=== PATIENT | female | born 1975 | race Two or more races ===

== ENCOUNTER 2024-07-04 10:43 | Emergency (ER) | payer SELFPAY ==
--- NOTE | 2024-07-04 10:46 | EKG_ITS ---
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
[2024-07-04 10:50] VITALS: BP 143/82; PULSE 61; RESP 16; TEMP 36.7; O2SAT 99; BMI 30.3
--- NOTE | 2024-07-04 11:03 | XR_ITS ---
Examination: PA lateral chest 2 views TECHNIQUE: Upright PA lateral chest 2 views Exam date and time: July 04, 2024 1118 hours INDICATIONS: Chest pain beginning 3 days ago. FINDINGS: Normal heart size Lungs are clear. The osseous structures are intact IMPRESSION: No active disease
--- NOTE | 2024-07-04 11:03 | PD.EDRME ---
Rapid Medical Screening Exam RME Arrival date/time: 07/04/24 10:43 49-year-old female presents the emergency department complaints of chest pain ongoing x 3 days Chief Complaint: Chest Pain Vital signs: Vital Signs Temperature 98.0 F 07/04/24 10:50 Pulse Rate 61 07/04/24 10:50 Respiratory Rate 16 07/04/24 10:50 Blood Pressure 143/82 H 07/04/24 10:50 Pulse Oximetry (%) 99 07/04/24 10:50 Oxygen Delivery Method Room Air 07/04/24 10:50
[2024-07-04 11:51] LABS: Basophils # (Auto) 0.1 Thou/mm3 (0.0-0.2); Basophils % (Auto) 1 % (0-2.5); Eosinophils # (Auto) 0.1 Thou/mm3 (0.0-0.5); Eosinophils % (Auto) 2 % (0-10); Hematocrit 35.7 % (36.0-46.0); Hemoglobin 11.9 g/dL (12.0-16.0); Immature Granulocytes % (Auto) 0 % (0-0); Immature Granulocytes Auto 0.01 Thou/mm3 (0.00-0.00); Lymphocytes # (Auto) 2.1 Thou/mm3 (1.0-4.8); Lymphocytes % (Auto) 39 % (10-50); Mean Corpuscular HGB Conc 33.3 g/dl (31.0-37.0); Mean Corpuscular Hemoglobin 26.7 pg (25.0-35.0); Mean Corpuscular Volume 80 fL (80-100); Monocytes # (Auto) 0.5 Thou/mm3 (0.0-0.8); Monocytes % (Auto) 9 % (0-12); Neutrophils # (Auto) 2.6 Thou/mm3 (1.8-7.7); Neutrophils % (Auto) 49 % (37-80); Nucleated Red Blood Cell % 0 /100 WBC (0); Platelet Count 190 Thou/mm3 (140-440); RDW Standard Deviation 43.4 fL (36.4-46.3); Red Blood Count 4.45 Miln/mm3 (4.00-5.20); White Blood Count 5.3 Thou/mm3 (3.6-11.0)
[2024-07-04 12:14] LABS: Alanine Aminotransferase 12 U/L (10-49); Albumin, Serum 4.2 gm/dL (3.5-5.0); Albumin/Globulin Ratio 1.7 (1.2-2.2); Alkaline Phosphatase 62 U/L (46-116); Anion Gap 4 (7-16); Aspartate Amino Transferase 17 U/L (0-34); BUN/Creatinine Ratio 12 Ratio (12-20); Bilirubin,Total 0.6 mg/dL (0.3-1.2); Blood Urea Nitrogen 7 mg/dL (9-23); Calcium 9.6 mg/dL (8.3-10.6); Calcium (Corrected) 9.6 mg/dL (8.5-10.1); Carbon Dioxide 27.5 mMol/L (20.0-31.0); Chloride 105 mMol/L (98-107); Creatinine (Component) 0.6 mg/dL (0.6-1.3); Estimated Creatinine Clearance 120.4 mL/min (>60); Globulin 2.5 gm/dL (2.3-3.5); Glucose 90 mg/dL (74-106); Lipase 51 U/L (12-53); Osmolality,Calculated 269 (275-295); Potassium 3.8 mMol/L (3.4-5.1); Sodium 136 mMol/L (136-145); Total Protein 6.7 gm/dL (5.7-8.2); Troponin I < 0.002 ng/mL (0.0-0.045); eGFR > 60 See Note
[2024-07-04 13:28] LABS: HCG,Qualitative Serum Negative
--- NOTE | 2024-07-04 14:04 | EDNOTE_ITS ---
ED Chest Pain RME/HPI General Chief Complaint: Chest Pain Stated Complaint: CHEST PAIN X 3 DAYS Time Seen by Provider: 07/04/24 14:00 Arrival date/time: 07/04/24 10:43 49-year-old female with no significant medical problems presents the emergency department who complains of chest pain ongoing for the last 3 days patient does report she is under a lot of stress and she is going to a tomorrow. Limitations: no limitations RME / HPI RME / HPI narrative: 07/04/24 10:43 49-year-old female presents the emergency department complaints of chest pain ongoing x 3 days Related Data Allergies Allergy/AdvReac Type Severity Reaction Status Date / Time No Known Allergies Allergy Verified 07/04/24 10:43 Review of Systems Review of Systems Systems Reviewed: All systems reviewed, normal except as documented Constitutional Constitutional: Reports system reviewed and no additional complaints, except as documented, Denies fever(s) and Denies headache(s) Eyes Eyes: Reports system reviewed and no additional complaints, except as documented and Denies blurry vision ENT Ears, Nose, Mouth, and Throat: Reports system reviewed and no additional complaints, except as documented, Denies headache(s), Denies nasal congestion and Denies nasal discharge Cardiovascular Cardiovascular: Reports system reviewed and no additional complaints, except as documented, Reports chest pain and Denies dyspnea Respiratory Respiratory: Reports system reviewed and no additional complaints, except as documented, Denies chest congestion, Denies cough and Denies dyspnea Gastrointestinal Gastrointestinal: Reports system reviewed and no additional complaints, except as documented and Denies abdominal pain Integumentary/Breasts Skin/Breast: Reports system reviewed and no additional complaints, except as documented and Denies rash Neurologic Neurologic: Reports system reviewed and no additional complaints, except as documented, Reports as per HPI and Denies headache(s) Past Medical History Social History SMOKING STATUS: Never smoker SUBSTANCE USE: does not use ED Exam General Limitations: Present no limitations General appearance: Present alert and in no apparent distress Head Head exam: Present atraumatic Eye Eye exam: Present normal appearance, PERRL and EOMI; Absent conjunctival injection ENT ENT exam: Present normal exam, normal oropharynx and mucous membranes moist Neck Neck exam: Present normal inspection, full ROM and trachea midline Chest Chest inspection: Present normal inspection and symmetric chest wall rise Respiratory Respiratory exam: Present normal lung sounds bilaterally; Absent respiratory distress Cardiovascular Cardiovascular exam: Present regular rate, normal rhythm and normal heart sounds; Absent bradycardia, tachycardia, irregular rhythm, systolic murmur, diastolic murmur or JVD Abdominal Exam Abdominal exam: Present soft and normal bowel sounds; Absent distention, tenderness, guarding, rebound or rigidity Extremities Exam Extremities exam: Present normal inspection and full ROM Back Exam Back exam: Present normal inspection and full ROM Neurological Exam Neurological exam: Present alert, oriented X3 and CN II-XII intact Psychiatric Psychiatric exam: Present normal affect and normal mood Skin Skin exam: Present warm, dry, intact and normal color Course Quality Measures none Orders Category Date Time Status EKG (ED ONLY) *Do not use* NOW Care 07/04/24 10:46 Completed EKG (ED Only) Stat Exams 07/04/24 10:46 Draft XR chest 2V Stat Exams 07/04/24 11:03 Completed CBC Stat Lab 07/04/24 11:34 Completed Comprehensive Metabolic Panel Stat Lab 07/04/24 11:34 Completed HCG,Qualitative Serum Stat Lab 07/04/24 11:34 Completed Lipase Stat Lab 07/04/24 11:34 Completed Troponin I Stat Lab 07/04/24 11:34 Completed Vital Signs Vital signs: Vital Signs Temperature 98.0 F 07/04/24 10:50 Pulse Rate 61 07/04/24 10:50 Respiratory Rate 16 07/04/24 10:50 Blood Pressure 143/82 H 07/04/24 10:50 Pulse Oximetry (%) 99 07/04/24 10:50 Oxygen Delivery Method Room Air 07/04/24 10:50 O2 saturation 99% room air within normal limits Procedures -ED EKG Interpretation #1: Additional EKG comment: EKG 07/04/2024 11:01 AM sinus bradycardia [address] elevation or depression normal axis normal R wave progression Chest Pain MDM Narrative MDM Narrative:: 49-year-old female with no significant medical problems presents the emergency department who complains of chest pain ongoing for the last 3 days patient does report she is under a lot of stress and she is going to a tomorrow. On exam patient well-appearing patient does not appear ill or toxic Cardiac workup obtained no acute emergent findings noted Patient does appear to be anxious on exam I do believe that her symptoms are stemming from anxiety and stress Patient discharged home in no distress to follow-up with primary care doctor in the next 24 to 48 hours and for any worsening symptoms to return to the ER immediately Patient data External records reviewed:: [facility] previous records Clinical information provided by:: patient Social determinants that could affect healthcare access:: none Patient has the following chronic illnesses:: None How is presenting disease/condition affected by chronic disease/condition?: no chronic disease Evaluation data The following diagnostics were reviewed and interpreted by me:: lab results, radiology exam(s) and EKG tracing(s) Lab and/or radiology exams considered but not ordered:: Labs, radiology, EKG obtained Interpretation Summary: Reviewed by me Medications / Prescriptions Medications or Prescriptions considered but not ordered:: Given no meds Medication administrations:: Given no meds Consultations Consultation(s) initiated? (list below): No Diagnosis Chest Pain Differential Diagnosis: atypical chest pain, st elevation myocardial infarction, costochondritis and chest pain Most likely diagnosis given after review of the tests above:: Chest pain Admission Indicated Admission indicated?: not indicated Admission Request Was there a request for admission?: No Disposition Plan Disposition Plan: Discharge Discharge Attestation Discharge Attestation: The patient and all family members were given an opportunity to ask questions and understood the discharge instructions. Discharge instructions specifically effects, indications for sooner follow up or return to the emergency department, and the expected course of current diagnosis. Patient condition: Stable Discharge Plan Plan Patient Disposition: HOME (Self Care) Disposition Comment: Stable Prescriptions/Referrals Referrals: Filipe Deng MD [Primary Care Provider] - 07/05/24 Problem List Clinical Impression: Chest pain Patient/Caregiver Discharge Instructions Education Materials: ED Chest Pain, Noncardiac Additional Instructions: Please follow up with your primary care doctor in the next 24-48hrs for any worsening symptoms return here immediately Print Language: Scottish Stand Alone Forms: Bety Award Info., Work/School Release, Patient Portal Info Letter MD Attestation Attestation The patient was seen by the midlevel practitioner. I, the co-signing physician, was present during the entire ER visit. While I did not physically examine the patient, I was available for consultation as needed.
== END 2024-07-04 15:14 | disposition home or self-care (01) ==
PROVIDERS: Nurse Practitioner Primary Care; Emergency Provider Emergency Medicine; PCP Internal Medicine
DX: R07.9 Chest pain, unspecified (principal); R00.1 Bradycardia, unspecified
CPT/HCPCS: 36415; 71046; 80053; 83690; 84484; 84703; 85025; 93005; 99283

== ENCOUNTER → 2024-08-03 | Outpatient (CLI) | payer BC, SELFPAY ==
--- NOTE | 2024-08-03 13:00 | XR_ITS ---
Examination: Transvaginal ultrasound of the pelvis, complete Technique: Transvaginal sonographic images pelvis performed using duarte scale imaging Exam date and time: August 03, 2024 1340 hours INDICATIONS: Pelvic sonogram 05/16/2024 vascular mass in the fundus of uterus 3.4 x 3.5 cm, pelvic pain months FINDINGS: Uterus 10.1 x 5.6 x 6.2 cm Uterine vascular fundal mass, partially indistinct margins, 3.1 x 2.6 x 3.6 cm Endometrial stripe 17 mm Right ovary 4.4 x 3.3 x 3.7 cm arterial flow 26 x 22 mm cyst Left ovary obscured by bowel gas IMPRESSION: Vascular uterine fundal mass 3.1 x 2.6 x 3.6 cm, differential would include malignant neoplasm of the uterus Recommend MRI pelvis follow-up pre and postcontrast.
--- NOTE | 2024-08-03 13:15 | XR_ITS ---
Examination: Pelvic ultrasound, transabdominal, complete Technique: Transabdominal ultrasound of the pelvis performed using grayscale imaging Date and time of exam: August 03, 2024 1327 hours INDICATIONS: Vascular uterine mass on ultrasound of the pelvis 05/16/2024 FINDINGS: Uterus 10.9 x 6.5 x 7.1 cm Uterine fundal vascular mass 3.6 x 3.0 x 4.6 cm Endometrial stripe 1.9 cm Right ovary 4.8 x 3.3 x 4.4 cm arterial flow, 33 x 37 mm cyst Left ovary 4.7 x 2.4 x 4.1 cm arterial flow 25 x 37 mm cyst IMPRESSION: Vascular uterine fundal mass 3.6 x 3.0 x 4.6 cm, differential would include malignant neoplasm of uterus, consider MRI pelvis follow-up pre and postcontrast
== END | disposition home or self-care (01) ==
LOC: CDIM 12:46
PROVIDERS: PCP Internal Medicine; Referring Provider Obstetrics & Gynecology; Visit Provider Obstetrics & Gynecology
DX: R19.09 Other intra-abdominal and pelvic swelling, mass and lump (principal)
CPT/HCPCS: 76830; 76856

== ENCOUNTER → 2024-12-08 | Outpatient (CLI) | payer BC, SELFPAY ==
--- NOTE | 2024-12-08 13:00 | XR_ITS ---
Examination: Transvaginal ultrasound of the pelvis, complete Technique: Transvaginal sonographic images pelvis performed using duarte scale imaging Exam date and time: December 08, 2024 1330 hours INDICATIONS: Uterine fundal mass 3.6 cm on pelvic sonogram August 03, 2024 FINDINGS: Uterus 10.3 cm endometrial stripe 1.4 cm Uterine fundal mass 3.3 x 4.4 x 3.2 cm Right ovary 3.0 cm arterial flow Left ovary 5.2 cm arterial flow IMPRESSION: Uterine fundal mass 3.3 x 4.4 x 3.2 cm Prominent left ovary Recommend 6 month follow-up transvaginal pelvic sonography
== END | disposition home or self-care (01) ==
LOC: CDIM 12:59
PROVIDERS: PCP Internal Medicine; Referring Provider Obstetrics & Gynecology; Visit Provider Obstetrics & Gynecology
DX: N85.8 Other specified noninflammatory disorders of uterus (principal)
CPT/HCPCS: 76830

== ENCOUNTER → 2025-04-13 | Outpatient (CLI) | payer BC, SELFPAY ==
--- NOTE | 2025-04-13 08:15 | XR_ITS ---
Examination: Screening digital mammography, bilateral Computer aided detection 3-D breast Tomosynthesis, bilateral Date and time of exam: 04/13/2025, 8:58 AM Comparisons: April 2009 through July 2022 Indications: Screening Technique: Nonmagnified MLO, CC views of the breasts to been obtained, reconstructed from 3-D Tomosynthesis images. R2 computer aided detection program utilized for evaluation of suspicious masses and/or abnormal calcifications. 3-D Tomosynthesis images obtained. Technologist: Findings: There are scattered areas of fibroglandular density. No evidence of abnormal masses or suspicious calcifications. Impression: BI-RADS category 1: Negative findings (within normal) Recommend 1 year follow-up mammogram
== END | disposition home or self-care (01) ==
PROVIDERS: PCP Internal Medicine; Referring Provider Internal Medicine; Visit Provider Internal Medicine
DX: Z12.31 Encounter for screening mammogram for malignant neoplasm of breast (principal); R92.313 Mammographic fatty tissue density, bilateral breasts
CPT/HCPCS: 77063; 77067

== ENCOUNTER 2025-05-24 11:55 | Day surgery (SDC) | payer BC, SELFPAY ==
[2025-05-23 10:57] LABS: HCG Qualitative,Urine Negative
[2025-05-24] VITALS (10 sets, daily range): BP systolic 96–134; BP diastolic 52–75; PULSE 49–59; RESP 12–19; TEMP 36.8–37.2; O2SAT 96–100; BMI 29.9
[2025-05-24] MEDS: RINGERS LACTATED 1000 ML 1,000 ML 100 ML IV (14:15)
[2025-05-24] MEDS: MIDAZOLAM INJ 1 MG/ML VIAL 2 ML (ASD USE ONLY) 2 MG IVP (14:18)
[2025-05-24] MEDS: fentaNYL CIT INJ 50 mCg/ML AMP 2ML (ASD USE ONLY) IVP (14:21)
== END 2025-05-24 15:10 | disposition home or self-care (01) ==
PROVIDERS: PCP Internal Medicine; Referring Provider Surgery; Visit Provider Surgery
PROC: 0DBE8ZX Excision of Large Intestine, Via Natural or Artificial Opening Endoscopic, Diagnostic (ICD-10-PCS; CPT 45380; principal; 2025-05-24 13:45)
DX: Z12.11 Encounter for screening for malignant neoplasm of colon (principal); K57.30 Diverticulosis of large intestine without perforation or abscess without bleeding
CPT/HCPCS: 45378; 81025; A4649; J1200; J2250; J3010; J7120